=== PATIENT | female | born 1995 | race Caucasian/White ===

== ENCOUNTER 2017-12-23 13:33 | Inpatient (IN) ==
[2017-12-26 07:18] VITALS: BP 140/75
== END 2017-12-26 10:55 | disposition home or self-care (01) | DRG 560 ==
LOC: N.LDOUT 13:33 → N.LD 13:36 → N.OB 12-24 20:50
PROVIDERS: ADMIT Obstetrics & Gynecology; ATTEND Obstetrics & Gynecology

== ENCOUNTER 2022-04-29 13:44 | Inpatient (IN) ==
[2022-04-29] MEDS ORDERED: ALBUTEROL 2.5 MG/3 ML NEB RESP TX PRN (16:14)
[2022-04-29] MEDS ORDERED: hydrALAZINE 20 MG/1 ML VIAL IV PRN (16:14)
[2022-04-29] MEDS ORDERED: ACETAMINOPHEN 325 MG TABLET PO PRN (16:14)
[2022-04-29] MEDS ORDERED: SODIUM CHLORIDE 0.9% 1,000 ML IV PRN (16:19)
[2022-04-29] MEDS ORDERED: INFLUENZA VIRUS VACCINE 0.5 ML SYRINGE IM ONE (16:31)
[2022-04-29 17:42] LABS: Basophils % 0.3 % (0.0-0.8); Eosinophils # 0.1 10*3/uL (0.0-0.87); Eosinophils % 1.3 % (0.00-10.9); Hematocrit 23.5 VOL% (35.7-47.0); Immature Granulocytes % 0.4 %; Immature Granulocytes Absolute 0.04 #; Lymphocytes # 2.3 10*3/uL (1.4-4.0); Lymphocytes % 23.8 % (21.3-54.2); Mean Corpuscular HGB Conc 29.8 GM/DL (32-36); Mean Corpuscular Volume 104.9 FL (87-102); Mean Platelet Volume 11.1 FL (9.6-12.0); Monocytes # 0.4 10*3/uL (0.11-0.8); Monocytes % 4.6 % (1.7-12.7); Neutrophils % 69.6 % (38.7-73.9); Platelet Count 292 T/CUMM (130-400); Red Blood Count 2.24 MC/CUMM (3.8-5.5); Red Cell Distribution Width 21.1 % (9.3-17.3); White Blood Count 9.6 T/CUMM (4-12)
[2022-04-29] MEDS: LACTATED RINGERS 1,000 ML IV SCH (18:00)
[2022-04-29 18:02] LABS: Albumin 1.5 G/DL (3.4-5.0); Bilirubin,Total 2.6 MG/DL (0.20-1.00); Calcium 7.7 MG/DL (8.5-10.1); Osmolality,Calculated 275.4 MOS/KG (273-304); Potassium 3.6 MMOL/L (3.5-5.1); Total Protein 5.6 G/DL (6.4-8.2)
[2022-04-29 18:04] LABS: Folate 14.76 NG/ML (5.38-24.0); Vitamin B12 > 2000 PG/ML (211-911)
[2022-04-29 18:09] LABS: % Iron Saturation 95.4 % (18-50); Ferritin 453.5 ng/mL (8-252)
[2022-04-29 18:52] LABS: Sedimentation Rate-Westergren 75 MM/HR (0-20)
[2022-04-29] MEDS ORDERED: MORPHINE 2 MG/1 ML SYRINGE IV ONE (20:43)
[2022-04-29] MEDS ORDERED: PANTOPRAZOLE 40 MG TABLET PO SCH (21:00)
[2022-04-29] MEDS: FAMOTIDINE 20 MG/2 ML VIAL IV SCH (21:53)
[2022-04-30 05:30] LABS: Basophils % 0.5 % (0.0-0.8); Eosinophils # 0.1 10*3/uL (0.0-0.87); Eosinophils % 1.4 % (0.00-10.9); Hematocrit 22.6 VOL% (35.7-47.0); Hemoglobin 7.3 GM/DL (12.0-16.0); Immature Granulocytes % 0.4 %; Immature Granulocytes Absolute 0.03 #; Lymphocytes # 2.3 10*3/uL (1.4-4.0); Lymphocytes % 28.4 % (21.3-54.2); Mean Corpuscular HGB Conc 32.3 GM/DL (32-36); Mean Corpuscular Volume 97.4 FL (87-102); Mean Platelet Volume 10.8 FL (9.6-12.0); Monocytes # 0.5 10*3/uL (0.11-0.8); Monocytes % 5.8 % (1.7-12.7); Neutrophils % 63.5 % (38.7-73.9); Platelet Count 262 T/CUMM (130-400); Red Blood Count 2.32 MC/CUMM (3.8-5.5); Red Cell Distribution Width 19.4 % (9.3-17.3); White Blood Count 7.9 T/CUMM (4-12)
[2022-04-30 06:16] LABS: Alanine Aminotransferase 40 U/L (13-56); Albumin 1.3 G/DL (3.4-5.0); Alkaline Phosphatase 182 U/L (45-117); Aspartate Amino Transferase 97 U/L (0-37); Blood Urea Nitrogen 4 MG/DL (7-18); Calcium 7.7 MG/DL (8.5-10.1); Carbon Dioxide 23 MMOL/L (21-32); Chloride 113 MMOL/L (98-107); Cholesterol 165 MG/DL (50-200); Glucose 77 MG/DL (74-106); HDL Cholesterol < 10 MG/DL (40-60); Potassium 3.7 MMOL/L (3.5-5.1); Sodium 143 MMOL/L (136-145); Total Protein 4.8 G/DL (6.4-8.2); Triglycerides 269 MG/DL (2-150); VLDL Cholesterol 53.8 MG/DL
[2022-04-30] MEDS: FAMOTIDINE 20 MG/2 ML VIAL IV SCH ×2 (08:05→20:11)
[2022-04-30] MEDS ORDERED: PANTOPRAZOLE 40 MG TABLET PO SCH (09:00)
[2022-04-30 09:38] LABS: Hemoglobin A1 (Alkaline) 97.6 % (96.5-98.5); Hemoglobin A2 (Alkaline) 2.4 % (1.5-3.5)
[2022-04-30] MEDS: ONDANSETRON 4 MG/2 ML VIAL IV PRN (10:14)
[2022-04-30] MEDS: MORPHINE 2 MG/1 ML SYRINGE IV PRN ×3 (10:46→20:11)
[2022-04-30 10:51] LABS: Basophils # 0.1 10*3/uL (0.0-0.2); Basophils % 0.5 % (0.0-0.8); Eosinophils # 0.1 10*3/uL (0.0-0.87); Eosinophils % 0.8 % (0.00-10.9); Hematocrit 29.5 VOL% (35.7-47.0); Immature Granulocytes % 0.4 %; Immature Granulocytes Absolute 0.04 #; Lymphocytes # 2.7 10*3/uL (1.4-4.0); Lymphocytes % 28.6 % (21.3-54.2); Mean Corpuscular HGB Conc 32.5 GM/DL (32-36); Mean Corpuscular Volume 93.4 FL (87-102); Mean Platelet Volume 11.4 FL (9.6-12.0); Monocytes # 0.4 10*3/uL (0.11-0.8); Neutrophils % 65.7 % (38.7-73.9); Platelet Count 252 T/CUMM (130-400); Red Cell Distribution Width 19.2 % (9.3-17.3); White Blood Count 9.5 T/CUMM (4-12)
[2022-04-30 10:52] LABS: Red Blood Count 3.16 MC/CUMM (3.8-5.5)
[2022-04-30 10:53] LABS: Hemoglobin 9.6 GM/DL (12.0-16.0)
[2022-04-30] MEDS: LACTATED RINGERS 1,000 ML IV SCH ×3 (15:14→23:14)
[2022-04-30] MEDS ORDERED: MAGNESIUM HYDROXIDE SUSP 30 ML UDCUP PO ONE (21:00)
[2022-05-01] MEDS: MORPHINE 2 MG/1 ML SYRINGE IV PRN ×5 (00:27→21:39)
[2022-05-01 05:09] LABS: Basophils % 0.5 % (0.0-0.8); Eosinophils # 0.1 10*3/uL (0.0-0.87); Eosinophils % 1.7 % (0.00-10.9); Hematocrit 27.4 VOL% (35.7-47.0); Immature Granulocytes % 0.5 %; Immature Granulocytes Absolute 0.03 #; Lymphocytes # 2.2 10*3/uL (1.4-4.0); Mean Corpuscular HGB Conc 32.8 GM/DL (32-36); Mean Corpuscular Volume 94.5 FL (87-102); Mean Platelet Volume 10.8 FL (9.6-12.0); Monocytes # 0.4 10*3/uL (0.11-0.8); Monocytes % 6.7 % (1.7-12.7); Neutrophils % 56.6 % (38.7-73.9); Platelet Count 258 T/CUMM (130-400); Red Cell Distribution Width 19.9 % (9.3-17.3); White Blood Count 6.6 T/CUMM (4-12)
[2022-05-01 05:32] LABS: Albumin 1.2 G/DL (3.4-5.0); Bilirubin,Total 2.6 MG/DL (0.20-1.00); Calcium 7.7 MG/DL (8.5-10.1); Calcium 7.8 MG/DL (8.5-10.1); Osmolality,Calculated 277.1 MOS/KG (273-304); Osmolality,Calculated 279.1 MOS/KG (273-304); Potassium 3.3 MMOL/L (3.5-5.1); Potassium 3.4 MMOL/L (3.5-5.1); Total Protein 4.9 G/DL (6.4-8.2)
[2022-05-01] MEDS: VANCOMYCIN 125 MG CAPSULE PO SCH ×3 (07:22→17:01)
[2022-05-01] MEDS: FAMOTIDINE 20 MG/2 ML VIAL IV SCH ×2 (08:51→21:25)
[2022-05-01] MEDS: BISACODYL 5 MG TABLET PO SCH ×2 (08:51→16:43)
[2022-05-01] MEDS: LACTATED RINGERS 1,000 ML IV SCH ×2 (08:51→19:17)
[2022-05-01] MEDS: ONDANSETRON 4 MG/2 ML VIAL IV PRN (12:09)
[2022-05-01] MEDS ORDERED: POTASSIUM CHLORIDE 20 MEQ TABLET PO ONE (12:10)
[2022-05-01] MEDS ORDERED: POLYETHYLENE GLYCOL POWDER 255 GM BOTTLE PO ONE (18:00)
[2022-05-01] MEDS ORDERED: MAGNESIUM HYDROXIDE SUSP 30 ML UDCUP PO ONE (21:00)
[2022-05-01] MEDS: DEXTROSE 10% 250 ML BAG IV PRN (21:26)
[2022-05-01 23:09] LABS: Bacteria,Urine Occasional /HPF (Few); Calcium Oxalate Crystals,Urine Occasional /HPF (Few); Mucus,Urine Moderate /LPF (Occasional); RBC,Urine 17 /HPF (0-4); Squamous Epithelial Cell,Urine Occasional /HPF (0-10)
[2022-05-01 23:10] LABS: Bilirubin,Urine Moderate mg/dL (Negative); Blood, Urine Large mg/dL (Negative); Glucose,Urine (UA) Negative (Negative); Ketones,Urine Negative (Negative); Nitrite,Urine Positive (Negative); Protein,Urine 30 mg/dL (Negative); Urine Appearance SL CLOUDY (Clear); Urine Color DARK YELLOW (Yellow); Urine Urobilinogen 0.2 eU/dL (<2.0); Urine pH 5.5 (4.5-8.0)
[2022-05-02] MEDS: BISACODYL 5 MG TABLET PO SCH (00:11)
[2022-05-02] MEDS: VANCOMYCIN 125 MG CAPSULE PO SCH ×5 (00:11→23:59)
[2022-05-02] MEDS: MORPHINE 2 MG/1 ML SYRINGE IV PRN ×3 (01:47→11:25)
[2022-05-02 05:51] LABS: Basophils % 0.5 % (0.0-0.8); Eosinophils # 0.1 10*3/uL (0.0-0.87); Eosinophils % 1.1 % (0.00-10.9); Hematocrit 27.4 VOL% (35.7-47.0); Immature Granulocytes % 0.3 %; Immature Granulocytes Absolute 0.02 #; Lymphocytes # 2.8 10*3/uL (1.4-4.0); Lymphocytes % 35.4 % (21.3-54.2); Mean Corpuscular HGB Conc 32.8 GM/DL (32-36); Mean Corpuscular Volume 93.2 FL (87-102); Monocytes # 0.5 10*3/uL (0.11-0.8); Monocytes % 5.8 % (1.7-12.7); Neutrophils % 56.9 % (38.7-73.9); Platelet Count 255 T/CUMM (130-400); Red Blood Count 2.94 MC/CUMM (3.8-5.5); Red Cell Distribution Width 19.6 % (9.3-17.3); White Blood Count 7.9 T/CUMM (4-12)
[2022-05-02] MEDS: LACTATED RINGERS 1,000 ML IV SCH ×3 (06:01→16:34)
[2022-05-02 06:09] LABS: Albumin 1.3 G/DL (3.4-5.0); Bilirubin,Total 2.7 MG/DL (0.20-1.00); Osmolality,Calculated 273.4 MOS/KG (273-304); Potassium 3.2 MMOL/L (3.5-5.1); Potassium 3.5 MMOL/L (3.5-5.1); Total Protein 5.2 G/DL (6.4-8.2)
[2022-05-02] MEDS: FAMOTIDINE 20 MG/2 ML VIAL IV SCH ×2 (09:00→21:58)
[2022-05-02] MEDS ORDERED: LIDOCAINE 2% 5 ML VIAL ONE (14:20)
[2022-05-02] MEDS ORDERED: propofoL 200 MG/20 ML VIAL IV ONE ×3 (14:20→14:35)
[2022-05-02] MEDS: cefTRIAXone 1,000 MG in SODIUM CHLORIDE 0.9% 100 ML IV SCH (16:28)
[2022-05-02] MEDS: COLESTIPOL 1 GM TABLET PO SCH (21:57)
[2022-05-02] MEDS: ONDANSETRON 4 MG/2 ML VIAL IV PRN (23:59)
[2022-05-03] MEDS: LACTATED RINGERS 1,000 ML IV SCH ×3 (04:21→16:15)
[2022-05-03] MEDS: VANCOMYCIN 125 MG CAPSULE PO SCH ×5 (06:09→23:10)
[2022-05-03] MEDS: FAMOTIDINE 20 MG/2 ML VIAL IV SCH ×2 (08:04→21:24)
[2022-05-03] MEDS: COLESTIPOL 1 GM TABLET PO SCH (12:53)
[2022-05-03] MEDS: cefTRIAXone 1,000 MG in SODIUM CHLORIDE 0.9% 100 ML IV SCH (14:19)
[2022-05-03] MEDS: ONDANSETRON 4 MG/2 ML VIAL IV PRN (14:20)
[2022-05-03] MEDS: MESALAMINE 800 MG TABLET PO SCH (21:21)
[2022-05-04] MEDS: LACTATED RINGERS 1,000 ML IV SCH (02:53)
[2022-05-04] MEDS: DEXTROSE 10% 250 ML BAG IV PRN (04:09)
[2022-05-04] MEDS: VANCOMYCIN 125 MG CAPSULE PO SCH ×2 (05:11→12:11)
[2022-05-04 05:37] LABS: Basophils % 0.7 % (0.0-0.8); Eosinophils # 0.1 10*3/uL (0.0-0.87); Eosinophils % 1.3 % (0.00-10.9); Hematocrit 25.3 VOL% (35.7-47.0); Immature Granulocytes % 0.3 %; Immature Granulocytes Absolute 0.02 #; Lymphocytes % 33.4 % (21.3-54.2); Mean Corpuscular HGB Conc 31.6 GM/DL (32-36); Mean Corpuscular Volume 96.2 FL (87-102); Mean Platelet Volume 10.6 FL (9.6-12.0); Monocytes # 0.3 10*3/uL (0.11-0.8); Monocytes % 5.6 % (1.7-12.7); Neutrophils % 58.7 % (38.7-73.9); Platelet Count 224 T/CUMM (130-400); Red Blood Count 2.63 MC/CUMM (3.8-5.5)
[2022-05-04 05:51] LABS: Calcium 7.5 MG/DL (8.5-10.1); Osmolality,Calculated 280.1 MOS/KG (273-304); Potassium 2.8 MMOL/L (3.5-5.1)
[2022-05-04] MEDS: FAMOTIDINE 20 MG/2 ML VIAL IV SCH (08:00)
[2022-05-04] MEDS: MESALAMINE 800 MG TABLET PO SCH (08:00)
[2022-05-04] MEDS ORDERED: POTASSIUM CHLORIDE 20 MEQ TABLET PO ONE (10:15)
[2022-05-04] MEDS: POTASSIUM CHLORIDE 20 MEQ TABLET PO SCH ×2 (10:15→12:11)
[2022-05-04] MEDS ORDERED: MAGNESIUM SULF RIDER 2 GM/50 ML PREMIX IV ONE (10:30)
[2022-05-04 10:59] VITALS: BP 118/55
== END 2022-05-04 13:55 | disposition hospice, home (50) | DRG 372 ==
LOC: SUATTDRO 16:01 → N.3E 16:01
PROVIDERS: ADMIT Internal Medicine; ATTEND Internal Medicine
PROC: COLONBX (2022-05-02 07:05)